=== PATIENT | female | born 1985 | race Caucasian/White ===

== ENCOUNTER 2019-11-20 23:50 | Emergency (ER) | payer BC, SELFPAY ==
[2019-11-20 23:54] VITALS: BP 140/110; PULSE 134; RESP 20; TEMP 37.2; O2SAT 97
[2019-11-21] MEDS: HALOPERIDOL LACTATE 5 MG/ML VIAL IM (00:02)
[2019-11-21] MEDS: LORazepam INJ (*CRX) 2 MG/ML VIAL IM (00:02)
[2019-11-21 00:21] VITALS: BP 157/117; PULSE 113; RESP 21; O2SAT 100
[2019-11-21 00:45] LABS: Alanine Aminotransferase 28 U/L (4-35); Albumin Level 4.9 g/dL (3.5-5.1); Alkaline Phosphatase 73 U/L (38-126); Anion Gap 12 mmol/L (8-16); Aspartate Amino Transferase 26 U/L (14-36); Bilirubin,Total 0.6 mg/dL (0.2-1.3); Blood Urea Nitrogen 10 mg/dL (7-17); Calcium 9.2 mg/dL (8.4-10.2); Carbon Dioxide 24 mmol/L (22-30); Chloride 104 mmol/L (98-107); Estimated Glomerular Filt Rate > 60; Glucose 136 mg/dL (65-105); Potassium 3.8 mmol/L (3.4-5.0); Sodium 140 mmol/L (137-145)
[2019-11-21 00:47] LABS: Basophils Absolute Auto 0.1 K/mm3 (0.0-0.1); Basophils Percent Auto 0.7 % (0.2-1.2); Eosinophils Absolute Auto 0.3 K/mm3 (0-0.3); Eosinophils Percent Auto 3.5 % (0-4.4); Hematocrit 39.6 % (37.0-47.0); Hemoglobin 13.9 g/dL (12.0-15.0); Immature Granulocyte Absolute 0.02 K/mm3 (0.00-0.031); Immature Granulocyte Percent A 0.3 % (0-0.5); Lymphocytes Absolute Auto 2.69 K/mm3 (0.9-3.2); Lymphocytes Percent Auto 35.3 % (18.3-44.2); Mean Corpuscular HGB Conc 35.1 g/dl (32-36); Mean Corpuscular Hemoglobin 31.3 pg (26-34); Mean Corpuscular Volume 89.2 fl (80-100); Monocytes Absolute Auto 0.8 K/mm3 (0.1-0.6); Monocytes Percent Auto 9.9 % (2.6-8.5); Neutrophils Absolute Auto 3.8 K/mm3 (1.3-6.7); Neutrophils Percent Auto 50.3 % (45.5-73.1); Platelet Count Result 378 k/mm3 (150-375); Red Blood Count 4.44 M/mm3 (4.2-5.4); Red Cell Distribution Width 11.5 % (11.5-14.5); White Blood Count 7.6 K/mm3 (4.5-10.0)
[2019-11-21 00:48] LABS: Ethanol < 10 mg/dL (<10)
[2019-11-21 00:54] LABS: Add Urine Microscopic? NO; Appearance Urine Clear (Clear); Bilirubin Urine Negative (Negative); Blood Urine Negative (Negative); Color Urine Yellow (Yellow); Glucose Urine UA Negative (Negative); Ketones Urine Negative (Negative); Leukocyte Esterase Ur Negative LEU/UL (Negative); Nitrate Urine Negative (Negative); Protein Urine Negative (Negative); Urobilinogen Urine Negative mg/dL (<2.0)
[2019-11-21 00:57] LABS: Amphetamine Screen Urine Negative (Negative); Barbiturate Screen Urine Negative (Negative); Benzodiazepines Screen Urine Negative (Negative); Cannabinoid Screen Urine Positive (Negative); Cocaine Screen Urine Negative (Negative); Methadone Screen Urine Negative (Negative); Opiate Screen Urine Negative (Negative); Phencyclidine Screen Urine Negative (Negative)
[2019-11-21 01:06] VITALS: BP 117/77; PULSE 114; RESP 20; O2SAT 98
--- NOTE | 2019-11-21 01:06 | PC.NURSE ---
Pt becoming more oriented. Pt is able to state her name, age, address and that she is in the hospital. She remembers that she was at [facility] and [facility] watching a [employer] movie. She knows she had a manic episode and states she is unsure what triggered it because she has been taking all her medications appropriately. Pt asks nurse if she is a question regis and if there are children in the room. She states that she is just trying to orient herself.
--- NOTE | 2019-11-21 01:47 | PC.NURSE ---
Called patients mother per her request who stated that she had a similar psychotic break january 2019 and was not hospitalized. Pts mother states that pts sister is on her way to this facility.
--- NOTE | 2019-11-21 01:53 | ED.PSYCH ---
HPI - Psych General Chief Complaint: Psychiatric Symptoms Stated Complaint: monty Time Seen by Provider: 11/20/19 23:51 Source: EMS Mode of arrival: EMS Limitations: altered mental status History of Present Illness HPI Narrative: This patient is a 34 year old female with history of bipolar who presents via EMS for evaluation of manic episode. EMS states patient was visiting a friend sulema, and she started to exhibit behavior change when they were trying to take her home. They reports patient would not get in the car. PAtient is constant talking. She is stating I am small, I'm black, I'm E, Im an organsm, I have brown eyes, I'm Richard, I'm B BB, I'm a god . She is able to states she takes vRaylar. She is able to tell me her name. MD complaint: altered mental status Related Data Home Medications Medication Instructions Recorded Confirmed bupropion HCl 300 mg PO DAILY 11/21/19 cariprazine [Vraylar] 3 mg DAILY 11/21/19 desvenlafaxine succinate [Pristiq] 100 mg PO DAILY 11/21/19 Allergies Allergy/AdvReac Type Severity Reaction Status Date / Time No Known Allergies Allergy Verified 11/21/19 01:05 Review of Systems Review of Systems: ROS unobtainable: Yes unobtainable due to mental status PMFSH Past Medical History Medical History (Updated 11/21/19 @ 06:41 by Arlene Etienne MD) Bipolar disorder Surgical History Surgical History (Updated 11/21/19 @ 06:41 by Arlene Etienne MD) No pertinent past surgical history Social History Social History (Updated 11/21/19 @ 06:41 by Arlene Etienne MD) Substance use type: marijuana Exam Const: General: alert Other: erratic behavior, kicking her feet up in the air. HENMT: Head: normocephalic and atraumatic Face and sinus: face symmetric Eyes: EOM: EOMs intact bilaterally Chest: Chest palpation & inspection: normal inspection of the chest Resp: Effort & Inspection: normal respiratory effort and no retractions Auscultation: clear to auscultation bilaterally Cardio: Rate: tachycardic Rhythm: regular rhythm Heart sounds: no murmurs GI: GI Palp: Yes Soft to palpation, No Tenderness to palpation present (GI) and No Guarding due to palpation present (GI) Skin: General skin exam: normal color Rashes: no rashes Neuro: General: moves all extremities, no meningeal signs and CN's II-XI intact bilaterally Extrem: General: no pedal edema Psych: Speech and movement: Pressured speech present Affect: Animated affect present Thought process: Flight of ideas present, Illogical thought process present, Tangential thought process present and Word salad present (speech) Other: Patient is extremely manic Course Reevaluation(s) Reevaluation #1: PAtient is now lucid and oriented x 3. She states she was hanging out with her friends and she missed her dose of Vraylar at 10 pm. She reports that she becomes manic quickly when she missed a dose of medication. She reports that she is going to call her psychiatrist. She is not suicidal or homicidal. Crisis has evaluated patient and they agree patient is safe for discharge. Her sister is at bedside. Date: 11/21/19 Time: 04:29 Vital Signs Vital signs: Vital Signs Temperature 98.9 F 11/20/19 23:54 Pulse Rate 134 H 11/20/19 23:54 Respiratory Rate 20 11/20/19 23:54 Blood Pressure 140/110 H 11/20/19 23:54 Pulse Oximetry 97 11/20/19 23:54 Temperature 98.2 F 11/21/19 04:42 Pulse Rate 120 H 11/21/19 04:42 Respiratory Rate 16 11/21/19 04:42 Blood Pressure 130/85 11/21/19 04:42 Pulse Oximetry 96 11/21/19 04:42 MDM - Psych Lab Data Result diagrams: 11/21/19 00:22 11/21/19 00:22 Labs: Lab Results 11/21/19 11/21/19 11/21/19 Range/Units 00:22 00:22 00:22 WBC 7.6 (4.5-10.0) K/mm3 RBC 4.44 (4.2-5.4) M/mm3 Hgb 13.9 (12.0-15.0) g/dL Hct 39.6 (37.0-47.0) % MCV 89.2 (80-100) fl MCH 31.3 (26-34) pg MCHC
[2019-11-21 01:56] VITALS: BP 111/74; PULSE 109; RESP 20; O2SAT 96
[2019-11-21 03:18] VITALS: BP 134/85; PULSE 116; RESP 18; O2SAT 100
--- NOTE | 2019-11-21 03:25 | PC.NURSE ---
Spoke with Crisis and they stated they would dispatch a case specialist
[2019-11-21 04:42] VITALS: BP 130/85; PULSE 120; RESP 16; TEMP 36.8; O2SAT 96
== END 2019-11-21 04:48 | disposition home or self-care (01) ==
PROVIDERS: Emergency Provider General Practice
DX: F31.9 Bipolar disorder, unspecified (principal)
CPT/HCPCS: 36415; 51701; 80053; 80307; 81003; 81025; 84443; 85025; 96372; 99284; J1630; J2060